=== PATIENT | female | born 1990 | race Caucasian/White ===

== ENCOUNTER 2016-08-11 17:09 | Emergency (ER) | payer MEDICAID, OTHER ==
[~2016-08-11] VITALS: Wt 56.0 kg
[2016-08-11] MEDS ORDERED: LORAZEPAM 1 MG TAB PO ONE (18:30)
--- NOTE | 2016-08-11 19:38 | RADRPT ---
PROCEDURE: Chest x-ray. CLINICAL INDICATION: Chest wall pain. TECHNIQUE: PA view of the chest. COMPARISON: None. FINDINGS: No pulmonary edema or conolidation is identified. The cardiac silhouette is not enlarged. No pleur al effusion is seen. There is no pneumothorax. No fracture is identified. IMPRESSION: 1. No evidence of acute cardiopulmonary disease. RPTAT: HTAR .Andrew Arora MD, MD Date Time Electronically viewed and signed by .Andrew Arora MD, on 08/11/2016 19:38 .R/
[2016-08-11] MEDS ORDERED: LORA-441 PO (19:47)
--- NOTE | 2016-08-11 19:52 | ERD ---
ER Documentation Chief Complaint Date/Time DATE: 08/11/16 TIME: 19:49 Chief Complaint PT WITH PANIC ATTACK, CRYING HPI Patient is a 25-year-old female with a past medical history of anxiety and panic attacks who presents to the ED with a panic attack. States that she feels short of breath and is hyperventilating. These of these symptoms have been going on for the last 3 days. She does not see a therapist or psychiatrist and is not on any medication. She states that she was hospitalized 4 years ago for these symptoms and was suicidal. Denies suicidal or homicidal ideations today. Denies hallucinations. ROS All systems reviewed and are negative except as per history of present illness. Medications Home Meds Active Scripts Lorazepam* (Ativan*) 0.5 Mg Tablet, 0.5 MG PO Q8H Y for ANXIETY, #5 TAB Prov:ZANDRA VELASCO PA-C 08/11/16 PMhx/Soc History of Surgery: No Anesthesia Reaction: No Hx Neurological Disorder: No Hx Respiratory Disorders: No Hx Cardiac Disorders: No Hx Psychiatric Problems: Yes (Anxiety, panic attack) Hx Miscellaneous Medical Probl: No Hx Alcohol Use: No Hx Substance Use: No Hx Tobacco Use: No Smoking Status: Never smoker FmHx Family History: No coronary disease, No diabetes, No other Physical Exam Vitals Vital Signs Date Time Temp Pulse Resp B/P Pulse Ox O2 Delivery O2 Flow Rate FiO2 08/11/16 17:23 98.3 100 18 133/90 100 Physical Exam GENERAL: Well-developed, well-nourished female. Appears in distress, crying HEAD: Normocephalic, atraumatic. EYES: Pupils are equally reactive bilaterally. EOMs grossly intact. No conjunctival erythema. ENT: Moist mucous membranes. No uvula deviation. No kissing tonsils. No exudates. NECK: Supple. No lymphadenopathy or thyromegaly. No meningismus. negative kernig. negative brudinski. LUNG: Clear to auscultation bilaterally. No rhonchi, wheezing, rales or coarse breath sounds. HEART: Regular rate and rhythm. No murmurs, rubs or gallops. ABDOMEN: No scars, ecchymosis or rashes noted. Soft, nontender, and nondistended. Positive bowel sounds in all four quadrants. No rebound tenderness , no guarding. (-) McBurneys point tenderness. No CVA tenderness. BACK: No midline tenderness. Extremities: Equal pulses bilaterally. No peripheral clubbing, cyanosis or edema. No unilateral leg swelling. NEUROLOGIC: Alert and oriented. Moving all four extremities. 5/5 strength in all extremities. Normal speech. Steady gait. SKIN: Normal color. Warm and dry. No rashes or lesions. Capillary refill < 2 seconds Results 24 hrs Current Medications Medications (Trade) Dose Ordered Sig/Rory Route PRN Reason Start Time Stop Time Status Last Admin Dose Admin Lorazepam (Ativan) 1 mg ONCE ONCE PO 08/11/16 18:30 08/11/16 18:31 DC 08/11/16 18:13 Procedures/MDM ER COURSE: I kept the patient and/or family informed of laboratory and diagnostic imaging results throughout the emergency room course. MEDICATIONS 1 g Ativan. Tolerated well with no adverse reaction. Negative test EKG performed, read by Dr. Sahu 73bpm, normal sinus rhythm, normal axis, no acute ST segment changes, no T wave inversion [place] [id number] Radiology Main Line: [phone] DIAGNOSTIC IMAGING REPORT Patient: BELEN GILMAN : 1990 Age: 25 Sex: F MR #: [id number] DOS: 08/11/16 1802 Ordering MD: ZANDRA VELASCO PA-C Location: [facility] Room/Bed: PROCEDURE: Chest x-ray. CLINICAL INDICATION: Chest wall pain. TECHNIQUE: PA view of the chest. COMPARISON: None. FINDINGS: No pulmonary edema or conolidation is identified. The cardiac silhouette is not enlarged. No pleural effusion is seen. There is no pneumothorax. No fracture is identified. IMPRESSION: 1. No evidence of acute cardiopulmonary disease. RPTAT: HTAR .Andrew Arora MD, Date Time Electronically viewed and signed by .Andrew Arora MD, on 08/11/2016 19:38 .R/ CC: ZANDRA VELASCO PA-C MEDICAL DECISION MAKING: This is a 25-year-old female who presents with panic attack and anxiety 3 days. Vital signs were reviewed. Patient is afebrile. Patient is not hypoxic. Patient is not toxic or ill-appearing. Patient was initially seen crying and hyperventilating. After administration of Ativan I reexamined patient and she stated improvement in symptoms and was ready to be going home. She denies suicidal homicidal ideations. At this point patient does not need to be admitted or to talk to psychiatry here. I advised patient that she needs to follow-up with her primary care provider in the therapist and possibly psychiatrist for better management of her symptoms. Low suspicion for ACS, PE, AAA, dissection, DVT. DISCHARGE: At this time, patient is stable for discharge and outpatient management with no new complaints during the ER course. Patient was sent home with Ativan and names of psychiatrist to follow-up with. Patient will be discharged home with instructions to recheck for new or worsening symptoms such as fever, nausea, weakness, LOC and to follow up with primary care in the next 1-2 days. Patient was advised to return to the ER for any new or worsening symptoms. Plan was discussed and patient and/or family understands and agrees. Home instructions were given. Departure Diagnosis: Primary Impression: Nervous Condition: Stable Patient Instructions: Treating Anxiety Disorders with Therapy, Anxiety Reaction Referrals: CLARK ROTH MD, CECILE N. MD YEGIAZARYAN, [facility] YOU HAVE RECEIVED A MEDICAL SCREENING EXAM AND THE RESULTS INDICATE THAT YOU DO NOT HAVE A CONDITION THAT REQUIRES URGENT TREATMENT IN THE EMERGENCY DEPARTMENT. FURTHER EVALUATION AND TREATMENT OF YOUR CONDITION CAN WAIT UNTIL YOU ARE SEEN IN YOUR DOCTORS OFFICE WITHIN THE NEXT 1-2 DAYS. IT IS YOUR RESPONSIBILITY TO MAKE AN APPOINTMENT FOR FOLOW-UP CARE. IF YOU HAVE A PRIMARY DOCTOR --you should call your primary doctor and schedule an appointment IF YOU DO NOT HAVE A PRIMARY DOCTOR YOU CAN CALL OUR PHYSICIAN REFERRAL HOTLINE AT IF YOU CAN NOT AFFORD TO SEE A PHYSICIAN YOU CAN CHOSE FROM THE FOLLOWING [facility] [address] [facility]. [facility] [address] [facility] [facility] [address] [facility] [address] [facility] [address] [facility]. [facility] [address] Additional Instructions: Call your primary care doctor TOMORROW for an appointment during the next 1-2 days.See the doctor sooner or return here if your condition worsens before your appointment time. ZANDRA VELASCO PA-C Aug 11, 2016 19:51
[2016-08-11 20:07] VITALS: BP 99/63; PULSE 89; RESP 16; TEMP 98.3
== END 2016-08-11 20:09 | disposition home or self-care (01) ==
LOC: FTE 17:09
DX: R45.0 Nervousness (principal); R07.89 Other chest pain
CPT/HCPCS: 71010; 93005; Z7502; Z7610